=== PATIENT | male | born 1980 | race Two or more races ===

== ENCOUNTER → 2024-12-11 | Day surgery (SDC) | payer OTHER ==
[~2024-12-11] MED LIST: BEET ROOT500 MG PO; DEXAMETHASONE SOD PHOS INJ 4 MG/ML SDV ONE; EPHEDRINE SULFATE INJ 50 MG/ML VIAL ONE; FENTANYL CITRATE/PF 100MCG/2 ML INJ ONE; LIDOCAINE HCL 2% LOCAL INJ 5 ML SDV VIAL INJ ONE; METOCLOPRAMIDE HCL 10 MG/2ML VIAL ONE; ONDANSETRON HCL INJ 2MG/ML 2ML 2 MG/ML VIAL ONE; PROPOFOL IV EMULSION 10 MG/ML 20 ML VIAL ONE; SEVOFLURANE INHAL SOLN 250 ML PEN BTL ONE
[2024-12-11] MEDS: LACTATED RINGER'S 1,000 ML ONE (06:02)
[2024-12-11] MEDS: CEFTRIAXONE 1 GM VIAL ONE (06:02)
[2024-12-11 07:39] VITALS: TEMP 97.6
[2024-12-11 08:25] VITALS: BP 156/99; PULSE 89; RESP 16; O2SAT 97
== END | disposition home or self-care (01) ==
LOC: OR 05:23
PROVIDERS: ATTEND Urology
DX: N20.0 Calculus of kidney (principal); N13.30 Unspecified hydronephrosis; R35.1 Nocturia; I10 Essential (primary) hypertension; E78.5 Hyperlipidemia, unspecified; Z01.810 Encounter for preprocedural cardiovascular examination; Z01.818 Encounter for other preprocedural examination; Z84.1 Family history of disorders of kidney and ureter
CPT/HCPCS: 50590; 74018; 93005; J0696; J1100; J2003; J2405; J2704; J2765; J3010; J7121